=== PATIENT | female | born 1975 | race Caucasian/White ===

== ENCOUNTER 2024-07-28 08:36 | Emergency (ER) | payer OTHER, SELFPAY ==
[2024-07-28 08:42] VITALS: BP 110/94; PULSE 113; RESP 26; TEMP 36.8; O2SAT 95; BMI 46.0
--- NOTE | 2024-07-28 08:44 | ED_ITS ---
HPI - Back Pain/Injury General: Chief Complaint: Back Pain/Injury Stated Complaint: fell, pain in legs and back Time Seen by Provider: 07/28/24 08:40 Source: patient Mode of arrival: ambulatory Limitations: no limitations History of Present Illness: 48-year-old female states that she is in a hotel bathroom and slipped and fell. States she did hit her back on a bench when she fell on night. States she had some pain in her mid lower back and left back states that since then its worsened states she is having worsening pain in the left lower lumbar states she is having spasms and pain down her legs as well. She denies any bowel or bladder incontinence she denies hitting her head. She rates her pain a 9 out of 10 currently Associated symptoms: Deny abdominal pain, chills, fever(s), nausea or vomiting Related Data Previous Rx's ?Medication ?Instructions ?Recorded methocarbamol 750 mg tablet 750 mg PO Q6H PRN spasms # 20 tabs 07/28/24 naproxen 500 mg tablet (Naprosyn) 500 mg PO BID PRN pa in #20 tabs 07/28/24 Allergies Allergy/AdvReac Type Severity Reaction Status Date / Time buspirone (From BuSpar) Allergy ADR-Anxiety Verified 07/28/24 08:45 Review of Systems Const: Denies: fever(s), chills, body aches or change in appetite ENMT: Denies: throat pain or dental pain Card: Denies: chest pain Resp: Denies: dyspnea GI: Denies: abdominal pain, nausea, vomiting or diarrhea Musc: Reports: back pain; Denies: neck pain Skin/Breast: Denies: rash Neuro: Denies: headache(s) Physical Exam Const: COMMON NORMALS: no acute distress, patient oriented x3 and healthy appearing HENMT: COMMON NORMALS: normocephalic and atraumatic HEAD & SCALP: normocephalic and atraumatic Eye: COMMON NORMALS: conjunctivae normal CONJUNCTIVA: Yes conjunctivae normal Neck/C-Spine: COMMON NORMALS: full ROM and supple Chest: COMMONS NORMALS: normal inspection of the chest Resp: COMMON NORMALS: normal respiratory effort Cardio: COMMON NORMALS: regular rate, regular rhythm and No murmurs present (Cardio) RATE: regular rate RHYTHM: regular rhythm Back/Pelvis: OTHER: Tenderness to left lower back with some slight lumbar midline tenderness no obvious deformities no saddle anesthesia Extremity: COMMON NORMALS: normal to inspection and full ROM Neuro: COMMON NORMALS: patient oriented x3, moves all extremities and no focal motor deficits Psych: COMMON NORMALS: mental status grossly normal, Normal thought process present and cooperative THOUGHT PROCESS: Normal thought process present Skin: COMMON NORMALS: no rashes or lesions noted and no wounds GENERAL SKIN EXAM: no rashes or lesions noted Course Vital Signs: Vital signs: Vital Signs Temperature 98.3 F 07/28/24 08:46 Pulse Rate 113 H 07/28/24 08:46 Respiratory Rate 26 H 07/28/24 08:46 Blood Pressure 110/94 07/28/24 08:46 Pulse Oximetry 95 07/28/24 08:46 Oxygen Delivery Me thod Room Air 07/28/24 08:46 MDM - Back Pain/Injury Medical Decision Making Patient presents here with a low back strain contusion from a fall x-ray shows no fracture she is well-appearing here no signs of cord compression she is stable for discharge his follow-up PCP return if worsening. Medical Records I reviewed the patient's medical records. XR interpretation done by ED provider, pending radiology final review ED provider radiology interpretation(s): xr lumbar: no acute abnormality Discharge Plan Discharge Patient Disposition: Home Clinical Impression: Low back pain Condition: Stable Prescriptions: New methocarbamol 750 mg tablet 750 mg PO Q6H PRN (Reason: spasms) Qty: 20 0RF naproxen [Naprosyn] 500 mg tablet 500 mg PO BID PRN (Reason: pain) Qty: 20 0RF Discharge Orders: Discharge ED (Routine); Ordered 07/28/24 Ordered By: Guille Mayberry Discharge Diet: Advance as tolerated Discharge Activity: Resume usual activity Patient Instructions: Low Back Strain (ED), Back Pain (ED) Print Language: [place] Coding Level of Care Code ED Roll Forming Machine Set Up Operator for Kelly Smith
--- NOTE | 2024-07-28 08:44 | XRR_ITS ---
PROCEDURE INFORMATION: Exam: XR Lumbosacral Spine Exam date and time: 07/28/2024 9:04 AM Age: 48 years old Clinical indication: Injury or trauma; Fall; Blunt trauma (contusions or hematomas) TECHNIQUE: Imaging protocol: Radiologic exam of the lumbosacral spine. Views: 2 or 3 views. COMPARISON: No relevant prior studies available. FINDINGS: Bones/joints: There is a slight scoliotic curvature convex left. No subluxations are identified. No compression fractures are noted. Disc spaces are relatively well preserved. There are small anterior osteophytes at all levels. There are mild degenerative changes involving the lower lumbar facets. SI joints are normal. Soft tissues: Unremarkable. XR/XR lumbar spine 2-3V* [id number] IMPRESSION: 1. Slight scoliotic curvature convex left. 2. Mild spondylosis.
[2024-07-28 08:46] VITALS: BP 110/94; PULSE 113; RESP 26; TEMP 36.8; O2SAT 95
[2024-07-28] MEDS: methocarbamol 750 mg Tablet 1500 MG PO (09:21)
[2024-07-28] MEDS: ketorolac 60 mg/2 mL INJ IM (09:29)
[2024-07-28 09:30] VITALS: RESP 20; O2SAT 97
[2024-07-28] MEDS: morphine 4 mg/mL SDV 1 mL IM (09:30)
[2024-07-28] MEDS: HYDROcodone-acetaminophen 5-325 mg Tablet 2 TAB PO (09:30)
[2024-07-28 09:42] VITALS: BP 168/139; PULSE 96; O2SAT 95
== END 2024-07-28 09:44 | disposition home or self-care (01) ==
PROVIDERS: Emergency Provider Emergency Medicine
DX: M54.50 Low back pain, unspecified (principal)
CPT/HCPCS: 72100; 96372; 99284; J1885; J2270; J9999